=== PATIENT | male | born 1950 | race Caucasian/White ===

== ENCOUNTER → 2018-05-26 | Emergency (ER) | payer MEDICARE ==
[~2018-05-26] VITALS: Ht 177.8 cm; Wt 99.8 kg
[~2018-05-26] MED LIST: ATENOLOL25 MG PO; ATENOLOL50 MG PO; LOSARTAN POTASS50 MG PO
== END ==
LOC: ED 06:52
DX: I10 Essential (primary) hypertension (principal)
CPT/HCPCS: 99283